=== PATIENT | female | born 1995 ===

== ENCOUNTER → 2017-02-02 | Outpatient (REF) | LOC: WSOH 13:00 | DX: Z00.00 Encounter for general adult medical examination without abnormal findings (principal) ==

== ENCOUNTER → 2017-02-02 | Outpatient (REF) | LOC: WSOH 13:00 → WSPT 14:00 | DX: Z02.1 Encounter for pre-employment examination (principal) ==

== ENCOUNTER → 2017-09-18 | Outpatient (REF) | LOC: WSOH 08:27 → WSPT 09:30 | DX: Z02.1 Encounter for pre-employment examination (principal) ==